=== PATIENT | female | born 1995 | race Caucasian/White ===

== ENCOUNTER 2018-01-06 00:27 | Emergency (ER) | payer SELFPAY ==
[2014-11-12 13:21] VITALS: Wt 44.5 kg
[~2018-01-06 00:27] MED LIST: ACYC-58 PO; ALB18R INH; ALBU8.5H IH; AZIT-18 PO; DOXY-229 PO; IBUP800T37 PO; IPRA3AMP10 IH; LOR5/325 PO; MUPI15CR10 TP; NIFE10CA38 PO; PNV1TABL77 PO; PRED-1 PO; PRED20TA6 PO; SULF-198 PO
[2018-01-06] MEDS ORDERED: NS(*) 0.9% 1000 ML BAG 1,000 ML IV ONE (00:42)
[2018-01-06] MEDS ORDERED: ONDANSETRON 4 MG/2 ML VIAL IVP ONE (00:45)
[2018-01-06] MEDS ORDERED: KETOROLAC 30 MG/ML VIAL IVP ONE (00:45)
[2018-01-06] MEDS ORDERED: fentaNYL CITR 100 MCG/2 ML AMP IVP ONE (00:45)
[2018-01-06 00:53] LABS: PLATELET COUNT, AUTOMATED 289 K/uL (150-450)
[2018-01-06 01:30] VITALS: BP 96/58
[2018-01-06] MEDS ORDERED: traMADol 50 MG TAB TH 2 TAB/BOTTLE PO ONE (01:30)
[2018-01-06] MEDS ORDERED: ONDANSETRON 4 MG ODT TH SL ONE (01:30)
--- NOTE | 2018-01-06 01:31 | ER Report ---
History and Physical Time Seen By MD: 01:28 Hx. of Stated Complaint: N/V SINCE THURSDAY; CAN NOT KEEP FLUIDS DOWN; PATIENT ALSO HAS DIARRHEA HPI/ROS CHIEF COMPLAINT: Vomiting and diarrhea HISTORY OF PRESENT ILLNESS: 22-year-old female presents ambulatory to the ER complaining vomiting and diarrhea for 36 hours. She describes crampy abdominal pain in the epigastrium radiating to both upper quadrants. She notes no recent travel exposure to ill contacts or consumption of bad food. She denies recent antibiotics. She denies dysuria, frequency or hematuria. She denies . Patient denies abdominal surgery. REVIEW OF SYSTEMS: Respiratory: No cough, no dyspnea. Cardiovascular: No chest pain, no palpitations. Gastrointestinal: As above Musculoskeletal: No back pain. Allergies: Coded Allergies: No Known Drug Allergies (Unverified , 01/06/18) Home Meds Active Scripts Ondansetron (ZOFRAN ODT) 4 Mg Tab.rapdis, 4 MG PO every 6 hours Y for NAUSEA/ VOMITING, #12 TAB TAKE 1 TABLET BY MOUTH EVERY 12 HOURS Prov:JAVIER JENNINGS DO 01/06/18 Tramadol Hcl (TRAMADOL HCL) 50 Mg Tablet, 1 TAB PO Q6H for PAIN, #12 MG TAKE ONE TABLETS BY MOUTH EVERY SIX HOURS NEEDED Prov:JAVIER JENNINGS DO 01/06/18 Albuterol Sulfate (VENTOLIN HFA) 18 Gm Inh, 2 PUFF INH Q4-6H Y for SHORTNESS OF BREATH, #1 INH Prov:ALBER BRADSHAW 09/20/16 Ipratropium/Albuterol Sulfate (IPRAT-ALBUT 0.5-3(2.5) MG/3 ML) 3 Ml Ampul.neb, 3 ML IH Q4-6H Y for SHORTNESS OF BREATH, #20 VIAL Prov:ALBER BRADSHAW 09/20/16 Acyclovir (ZOVIRAX) 400 Mg Tablet, 400 MG PO TID, #21 TAB 0 Refills Prov:JUSTYNA OLIVER MD 06/25/16 Reported Medications Albuterol Sulfate 90 Mcg/Act (PROAIR HFA 90 MCG/ACT) 8.5 Gm Hfa.aer.ad, 1-2 PUFF IH 3-4XD, INHALER 06/25/16 Doxycycline Monohydrate (DOXYCYCLINE MONOHYDRATE) 100 Mg Tablet, 100 MG PO BID 06/25/16 Discontinued Reported Medications Prednisone 10 Mg Tab (PREDNISONE 10 MG TAB) 10 Mg Tablet, 20 MG PO QDAY, TAB 06/25/16 Discontinued Scripts Sulfamethoxazole/Trimet 800-160 Mg Tab (BACTRIM DS TABLET) 1 Each Tablet, 1 TAB PO Q12H for infection, #14 Prov:JAVIER JENNINGS 12/13/16 Prednisone (PREDNISONE) 20 Mg Tablet, 20 MG PO BID, #10 TAB Prov:LEEANNALBER FNP 09/20/16 Azithromycin 250 Mg Tab (AZITHROMYCIN 250 MG TAB) 250 Mg Tablet, 1 TAB PO QDAY, #6 TAB Take 2 tabs today and then 1 tab a day until gone. Prov:ALBER BRADSHAW 09/20/16 Mupirocin Calcium (BACTROBAN) 15 Gm Cream..g., 0 TP TID, #15 GM 0 Refills Prov:JUSTYNA OLIVER MD 06/25/16 Reviewed Nurses Notes: Yes Old Medical Records Reviewed: Yes Hx Smoking: Yes (1pack per day) Smoking Status: Current: Every Day Smoker Exposure to Second Hand Smoke?: Yes Hx Substance Use Disorder: No Hx Alcohol Use: No Constitutional Vital Sign - Last 24 Hours 01/06/18 01/06/18 01/06/18 01/06/18 00:33 00:34 01:00 01:08 Temp 98.1 Pulse 112 79 Resp 17 B/P (MAP) 133/88 133/88 (103) 115/24 (54) Pulse Ox 98 O2 Delivery Room Air Physical Exam Vital signs stable, mild tachycardia to 112. Afebrile, pulse ox normal General Appearance: The patient is alert, has no immediate need for airway protection and no current signs of toxicity. Slightly pale appearing, skin warm and dry HEENT: Pupils equal and round no injection. TMs normal, oropharynx with moist membranes, no erythema Respiratory: Chest is non tender, lungs are clear to auscultation. Cardiac: regular rate and rhythm Gastrointestinal: Abdomen is soft and non tender, no masses, bowel sounds are hyperactive Musculoskeletal: Neck: Neck is supple and non tender. Extremities have full range of motion and are non tender. Skin: No rashes or lesions. DIFFERENTIAL DIAGNOSIS: After history and physical exam differential diagnosis was considered for abdominal pain including but not limited to appendicitis, cholecystitis, gastritis, gastroenteritis, food poisoning, viral syndrome and urinary tract infection. Medical Decision Making Data Points Result Diagram: 01/06/18 0037 01/06/18 0037 Laboratory Hematology Test 01/06/18 00:36 01/06/18 00:37 Urine Color Yellow Urine Clarity Slightly-cloudy Urine pH 5.0 pH (4.8-9.5) Urine Specific Harmans 1.013 Urine Protein Negative mg/dL (NEGATIVE) Urine Glucose (UA) Negative mg/dL (NEGATIVE) Urine Ketones Negative mg/dL (NEGATIVE) Urine Blood Small (NEGATIVE) Urine Nitrite Negative (NEGATIVE) Urine Bilirubin Negative (NEGATIVE) Urine Urobilinogen Negative mg/dL (0.2-1.9) Urine Leukocyte Esterase Trace (NEGATIVE) Urine RBC 2 /HPF (0-2/HPF) Urine WBC 3 /HPF (0-5/HPF) Urine Squamous Epithelial Cells Many /LPF (</=FEW) Urine Transitional Epithelial Cells Few /LPF (NONE-FEW) Urine Bacteria Few /HPF (NONE-FEW) Urine Mucus None /HPF (NONE-FEW) Red Blood Count 5.73 M/uL (4.17-5.56) Mean Corpuscular Volume 86.9 fL (80.0-96.0) Mean Corpuscular Hemoglobin 30.5 pg (26.0-33.0) Mean Corpuscular Hemoglobin Concent 35.2 g/dL (32.0-36.0) Red Cell Distribution Width 13.4 % (11.5-14.5) Mean Platelet Volume 7.9 fL (7.2-11.1) Neutrophils (%) (Auto) 58.6 % (39.4-72.5) Lymphocytes (%) (Auto) 27.1 % (17.6-49.6) Monocytes (%) (Auto) 7.3 % (4.1-12.4) Eosinophils (%) (Auto) 6.5 % (0.4-6.7) Basophils (%) (Auto) 0.5 % (0.3-1.4) Nucleated RBC Relative Count (auto) 0.0 /100WBC Neutrophils # (Auto) 9.0 K/uL (2.0-7.4) Lymphocytes # (Auto) 4.2 K/uL (1.3-3.6) Monocytes # (Auto) 1.1 K/uL (0.3-1.0) Eosinophils # (Auto) 1.0 K/uL (0.0-0.5) Basophils # (Auto) 0.1 K/uL (0.0-0.1) Nucleated RBC Absolute Count (auto) 0.01 K/uL Sodium Level 139 mmol/L (137-145) Potassium Level 3.2 mmol/L (3.5-5.0) Chloride Level 102 mmol/L (98-107) Carbon Dioxide Level 24 mmol/L (22-31) Blood Urea Nitrogen 13 mg/dl (7-18) Creatinine 0.70 mg/dl (0.52-1.04) Glomerular Filtration Rate Calc > 60.0 Random Glucose 97 mg/dl (75-110) Calcium Level 9.1 mg/dl (8.4-10.2) Total Bilirubin 0.7 mg/dl (0.2-1.3) Aspartate Amino Transf (AST/SGOT) 26 U/L (0-35) Alanine Aminotransferase (ALT/SGPT) 14 U/L (0-56) Alkaline Phosphatase 94 U/L (0-126) Total Protein 7.9 g/dl (6.3-8.2) Albumin 4.8 g/dl (3.5-5.0) Amylase Level 66 U/L (0-110) Lipase 116 U/L (23-300) Human Chorionic Gonadotropin, Qual Negative (NEGATIVE) Chemistry Test 01/06/18 00:36 01/06/18 00:37 Urine Color Yellow Urine Clarity Slightly-cloudy Urine pH 5.0 pH (4.8-9.5) Urine Specific Harmans 1.013 Urine Protein Negative mg/dL (NEGATIVE) Urine Glucose (UA) Negative mg/dL (NEGATIVE) Urine Ketones Negative mg/dL (NEGATIVE) Urine Blood Small (NEGATIVE) Urine Nitrite Negative (NEGATIVE) Urine Bilirubin Negative (NEGATIVE) Urine Urobilinogen Negative mg/dL (0.2-1.9) Urine Leukocyte Esterase Trace (NEGATIVE) Urine RBC 2 /HPF (0-2/HPF) Urine WBC 3 /HPF (0-5/HPF) Urine Squamous Epithelial Cells Many /LPF (</=FEW) Urine Transitional Epithelial Cells Few /LPF (NONE-FEW) Urine Bacteria Few /HPF (NONE-FEW) Urine Mucus None /HPF (NONE-FEW) White Blood Count 15.3 k/uL (4.5-11.0) Red Blood Count 5.73 M/uL (4.17-5.56) Hemoglobin 17.5 g/dL (12.0-16.0) Hematocrit 49.8 % (34.0-47.0) Mean Corpuscular Volume 86.9 fL (80.0-96.0) Mean Corpuscular Hemoglobin 30.5 pg (26.0-33.0) Mean Corpuscular Hemoglobin Concent 35.2 g/dL (32.0-36.0) Red Cell Distribution Width 13.4 % (11.5-14.5) Platelet Count 289 K/uL (150-450) Mean Platelet Volume 7.9 fL (7.2-11.1) Neutrophils (%) (Auto) 58.6 % (39.4-72.5) Lymphocytes (%) (Auto) 27.1 % (17.6-49.6) Monocytes (%) (Auto) 7.3 % (4.1-12.4) Eosinophils (%) (Auto) 6.5 % (0.4-6.7) Basophils (%) (Auto) 0.5 % (0.3-1.4) Nucleated RBC Relative Count (auto) 0.0 /100WBC Neutrophils # (Auto) 9.0 K/uL (2.0-7.4) Lymphocytes # (Auto) 4.2 K/uL (1.3-3.6) Monocytes # (Auto) 1.1 K/uL (0.3-1.0) Eosinophils # (Auto) 1.0 K/uL (0.0-0.5) Basophils # (Auto) 0.1 K/uL (0.0-0.1) Nucleated RBC Absolute Count (auto) 0.01 K/uL Glomerular Filtration Rate Calc > 60.0 Calcium Level 9.1 mg/dl (8.4-10.2) Total Bilirubin 0.7 mg/dl (0.2-1.3) Aspartate Amino Transf (AST/SGOT) 26 U/L (0-35) Alanine Aminotransferase (ALT/SGPT) 14 U/L (0-56) Alkaline Phosphatase 94 U/L (0-126) Total Protein 7.9 g/dl (6.3-8.2) Albumin 4.8 g/dl (3.5-5.0) Amylase Level 66 U/L (0-110) Lipase 116 U/L (23-300) Human Chorionic Gonadotropin, Qual Negative (NEGATIVE) Urinalysis Test 01/06/18 00:36 Urine Color Yellow Urine Clarity Slightly-cloudy Urine pH 5.0 pH (4.8-9.5) Urine Specific Harmans 1.013 Urine Protein Negative mg/dL (NEGATIVE) Urine Glucose (UA) Negative mg/dL (NEGATIVE) Urine Ketones Negative mg/dL (NEGATIVE) Urine Blood Small (NEGATIVE) Urine Nitrite Negative (NEGATIVE) Urine Bilirubin Negative (NEGATIVE) Urine Urobilinogen Negative mg/dL (0.2-1.9) Urine Leukocyte Esterase Trace (NEGATIVE) Urine RBC 2 /HPF (0-2/HPF) Urine WBC 3 /HPF (0-5/HPF) Urine Squamous Epithelial Cells Many /LPF (</=FEW) Urine Transitional Epithelial Cells Few /LPF (NONE-FEW) Urine Bacteria Few /HPF (NONE-FEW) Urine Mucus None /HPF (NONE-FEW) ED Course/Re-evaluation Clinical Indication for ER IV: Hydration, IV Access ED Course Patient admitted to an examination room. H&P was done. The differential diagnoses was considered. On conical examination. Patient has hyperactive bowel sounds and diffuse mild tenderness primarily in the upper quadrants. There is no rebound or guarding. Patient is treated with IV fluid hydration, Zofran, Toradol and fentanyl. Diagnostic laboratory studies show elevated white blood cell count. Basic test is negative. Urinalysis is unremarkable. Patient's advised a conservative plan of clear liquid diet. Patient be given tramadol and Zofran for symptom relief. She is advised to follow-up with primary care if unimproved in 3-5 days. Decision to Disposition Date: Jan 06, 2018 Decision to Disposition Time: 01:28 Depart Departure Latest Vital Signs Vital Signs Date Time Temp Pulse Resp B/P (MAP) Pulse Ox O2 Delivery O2 Flow Rate FiO2 01/06/18 01:08 79 01/06/18 01:00 115/24 (54) 01/06/18 00:33 98.1 17 98 Room Air Impression: Primary Impression: Gastroenteritis Additional Impression: Abdominal cramps Condition: Improved Disposition: HOME OR SELF-CARE Referrals: [facility] (PCP) New Scripts Ondansetron (ZOFRAN ODT) 4 Mg Tab.rapdis 4 MG PO every 6 hours Y for NAUSEA/VOMITING, #12 TAB TAKE 1 TABLET BY MOUTH EVERY 12 HOURS Prov: JAVIER JENNINGS DO 01/06/18 Tramadol Hcl (TRAMADOL HCL) 50 Mg Tablet 1 TAB PO Q6H for PAIN, #12 MG TAKE ONE TABLETS BY MOUTH EVERY SIX HOURS NEEDED Prov: JAVIER JENNINGS DO 01/06/18 Patient Instructions: Clear Liquid Diet (ED), Gastroenteritis (ED) Additional Instructions: Follow clear liquid diet for 24-48 hours and advance to the brat diet, bananas, rice, applesauce and toast You can also take ibuprofen for inflammatory pain relief. 2-3 tablets every 6- 8 hours as needed Follow-up with your primary care if unimproved in 3-5 days. Problem Qualifiers JAVIER JENNINGS DO Jan 06, 2018 01:31
[2018-01-06] MEDS ORDERED: ONDA4TAB PO (01:33)
[2018-01-06] MEDS ORDERED: TRAM-420 PO (01:33)
== END 2018-01-06 01:48 | disposition home or self-care (01) ==
LOC: ER 00:30
DX: K52.9 Noninfective gastroenteritis and colitis, unspecified (principal)
CPT/HCPCS: 81001; 82150; 83690; 84703; 85025; 96361; 96374; 96375; 99284; C9399; J1885; J2405; J3010; J7030; S0119; 82040; 82247; 82310; 82374; 82435; 82565; 82947; 84075; 84132; 84155; 84295; 84450; 84460; 84520